=== PATIENT | female | born 1975 | race African-American/Black ===

== ENCOUNTER 2016-11-11 18:22 | Emergency (ER) | payer BC, OTHER ==
[~2016-11-11] VITALS: Ht 154.9 cm; Wt 90.7 kg
[~2016-11-11 18:22] MED LIST: AMLODIPINE BESYL5 MG PO; AZITHROMYCIN 2250 MG PO; BACTRIM DS TAB1 EACH PO; BETAMETHASONE D60 M2 TOP; CHLORTHALIDONE25 MG PO; DIFLUCAN150 MG PO; FLAGYL500 MG PO; FLONASE 0.05%50 MCG NASAL; HYDROCHLOROTH12.5 MG PO; IBUPROFEN 800800 M1; KLOR-CON M2020 MEQ PO; LIDOCAINE HC; LISINOPRIL20 MG OR; LOVASTATIN 20 M20 MG PO; MEDROLDOSEPACK; NORCO 5-325 TA1 EACH PO; PENICILLIN V P500 MG PO; PENICILLIN VK250 MG PO; PENICILLIN VK500 MG PO; PERCOCET 5-3251 EACH PO; POTASSIUM20 PO; PREDNISONE 20 M20 MG PO; PROCTOFOAM-HC F10 GM; PROCTOFOAM-HC F10 GM RC; PROVENTIL HFA6.7 G1 INH; TUSSINMAX15 MG/5 ML PO; ULTRAM 50MG TAB50 MG PO
[2016-11-11] MEDS ORDERED: AMOXICILLIN 50500 MG PO (20:06)
[2016-11-11] MEDS ORDERED: MOBIC7.5 MG PO (20:06)
[2016-11-11 20:10] VITALS: BP 138/76
[2016-11-11] MEDS ORDERED: DIFLUCAN200 MG PO (20:18)
== END 2016-11-11 20:10 | disposition home or self-care (01) ==
LOC: ER 18:22
DX: K08.89 Other specified disorders of teeth and supporting structures (principal); R11.0 Nausea; I10 Essential (primary) hypertension; E78.5 Hyperlipidemia, unspecified; F17.210 Nicotine dependence, cigarettes, uncomplicated

== ENCOUNTER 2018-03-29 19:33 | Emergency (ER) | payer BC, OTHER ==
[~2018-03-29] VITALS: Ht 154.9 cm; Wt 86.2 kg
[~2018-03-29 19:33] MED LIST changes: +AMOXICILLIN 50500 MG PO; +DIFLUCAN200 MG PO; +MOBIC7.5 MG PO
[2018-03-29] MEDS ORDERED: PROMETHAZINE/C118 ML PO (20:59)
[2018-03-29 21:16] VITALS: BP 113/66
== END 2018-03-29 21:17 | disposition home or self-care (01) ==
LOC: ER 19:33
DX: R05 Cough (principal); R07.81 Pleurodynia; R50.9 Fever, unspecified; F17.210 Nicotine dependence, cigarettes, uncomplicated; I10 Essential (primary) hypertension; E78.00 Pure hypercholesterolemia, unspecified

== ENCOUNTER 2019-06-06 19:01 | Emergency (ER) | payer OTHER ==
[~2019-06-06] VITALS: Ht 154.9 cm; Wt 90.7 kg
[~2019-06-06 19:01] MED LIST changes: +AMLODIPINE BESY10 MG PO; -AMLODIPINE BESYL5 MG PO; +PROMETHAZINE/C118 ML PO
[2019-06-06] MEDS ORDERED: NORVASC10 MG PO (20:40)
[2019-06-06] MEDS ORDERED: IBUPROFEN 800800 M1 PO (20:41)
[2019-06-06 20:47] VITALS: BP 139/80
== END 2019-06-06 20:48 | disposition home or self-care (01) ==
LOC: ER 19:01
DX: M79.672 Pain in left foot (principal); Z76.0 Encounter for issue of repeat prescription; R60.0 Localized edema; I10 Essential (primary) hypertension; E78.00 Pure hypercholesterolemia, unspecified; F17.210 Nicotine dependence, cigarettes, uncomplicated